=== PATIENT | male | born 1945 | race Caucasian/White ===

== ENCOUNTER 2017-10-04 18:50 | Inpatient (IN) | payer MEDICARE ==
[~2017-10-04] VITALS: Ht 172.7 cm; Wt 123.2 kg
[~2017-10-04 18:50] MED LIST: AMIT25TA PO; ASPI325T17 PO; CARV12.52 PO; CITA20TA5 PO; ENOX40SY4 SQ; FLUO20CA8 PO; GABA300C10 PO; LEVO25TA4 PO; MELO15TA24 PO; OMEP-110 PO; OXYC-302 PO; PANT40TA5 PO; SIMV40TA3 PO; TRAZ50TA18 PO; [UNRECOGNIZED DRUG - REMARK]
[2017-10-04 19:47] LABS: TROPONIN I 0.685 ng/mL (0.000-0.045)
[2017-10-04] MEDS ORDERED: hydrALAzine 20 MG/ML, 1ML IVPush PRN (21:00)
[2017-10-04] MEDS ORDERED: NITROGLYCERIN 0.4 MG BOTTLE (25 TABS) SL PRN (21:00)
[2017-10-04] MEDS ORDERED: BISACODYL 10 MG SUPP PR PRN (21:00)
[2017-10-04] MEDS ORDERED: morphine SULFATE 10 MG/ML, 1ML IVPush PRN (21:00)
[2017-10-04] MEDS ORDERED: ACETAMINOPHEN 325 MG TABLET PO PRN (21:00)
[2017-10-04] MEDS ORDERED: ONDANSETRON 2MG/ML, 2ML IVPush PRN (21:00)
[2017-10-04] MEDS ORDERED: POLYETHYLENE GLYCOL 17 GM PACKET PO PRN (21:00)
[2017-10-04] MEDS ORDERED: SODIUM CHLORIDE FLUSH 10ML SYR IVF PRN (21:00)
[2017-10-04 21:13] LABS: FREE T4 (FREE THYROXINE) 0.62 ng/dL (0.76-1.46); THYROID STIMULATING HORMONE 26.4 mIU/L (0.358-3.740)
[2017-10-04 22:08] VITALS: BP 179/91
[2017-10-04 22:09] VITALS: BP 160/76
[2017-10-04] MEDS: TICAGRELOR 90 MG TABLET PO SCH (22:58)
[2017-10-04] MEDS: HEPARIN 5,000 UNITS/ML, 1ML SQ SCH (22:58)
[2017-10-04] MEDS: SIMVASTATIN 40 MG TABLET PO SCH (22:58)
[2017-10-04] MEDS: TRAZODONE 50MG TABLET PO SCH (22:58)
[2017-10-04] MEDS: SODIUM CHLORIDE FLUSH 10ML SYR IVF SCH (23:01)
[2017-10-05] VITALS: BP 128/68
[2017-10-05 01:26] LABS: BASOPHILS # (AUTO) 0.04 x10^3/uL (0-0.1); BASOPHILS % (AUTO) 1 % (0-1); EOSINOPHILS % (AUTO) 7 % (1-7); LYMPHOCYTES # (AUTO) 1.55 x10^3/uL (1-3.4); LYMPHOCYTES % (AUTO) 34 % (22-44); MD NO; MEAN CORPUSCULAR HEMOGLOBIN 23.5 pg (27.5-34.5); MEAN CORPUSCULAR HGB CONC 31.5 g/dL (33.2-36.2); MEAN CORPUSCULAR VOLUME 74.6 fL (81-97); MEAN PLATELET VOLUME 9.9 fL (7.4-10.4); MONOCYTES # (AUTO) 0.47 x10^3/uL (0.2-0.8); MONOCYTES % (AUTO) 10 % (2-9); NEUTROPHILS # (AUTO) 2.17 x10^3/uL (1.8-6.8); NEUTROPHILS % (AUTO) 48 % (42-75); PLATELET COUNT 198 x10^3/uL (130-400); RED BLOOD COUNT 4.06 x10^6/uL (4.38-5.82); RED CELL DISTRIBUTION WIDTH 19.5 % (9.4-14.8)
[2017-10-05 01:37] LABS: ALANINE AMINOTRANSFERASE 20 U/L (12-78); ALBUMIN 3.4 g/dL (3.4-5.0); ANION GAP 7 mmol/L (5-15); CALCIUM 8.1 mg/dL (8.5-10.1); CHLORIDE 109 mmol/L (98-107); CREATININE 1.23 mg/dL (0.7-1.3)
[2017-10-05 01:39] LABS: ALKALINE PHOSPHATASE 81 U/L (45-117); BILIRUBIN,TOTAL 0.3 mg/dL (0.2-1.0); TOTAL PROTEIN 6.7 g/dL (6.4-8.2)
[2017-10-05 01:42] LABS: TROPONIN I 0.658 ng/mL (0.000-0.045)
[2017-10-05 03:39] VITALS: BP 136/76
[2017-10-05] MEDS: HEPARIN 5,000 UNITS/ML, 1ML SQ SCH ×3 (07:00→22:51)
[2017-10-05 07:46] LABS: TROPONIN I 0.557 ng/mL (0.000-0.045)
[2017-10-05 08:08] VITALS: BP 145/82
[2017-10-05] MEDS: GABAPENTIN 300 MG CAPSULE PO SCH (08:49)
[2017-10-05] MEDS: OMEPRAZOLE 20 MG CAPSULE.DR PO SCH (08:49)
[2017-10-05] MEDS: AMITRIPTYLINE 25 MG TABLET PO SCH (08:49)
[2017-10-05] MEDS: CITALOPRAM 20 MG TABLET PO SCH (08:49)
[2017-10-05] MEDS: LEVOTHYROXINE 25 MCG TABLET PO SCH (08:49)
[2017-10-05] MEDS: FLUOXETINE HCL 20 MG CAPSULE PO SCH (08:49)
[2017-10-05] MEDS: CARVEDILOL 12.5 MG TABLET PO SCH (08:49)
[2017-10-05] MEDS: TICAGRELOR 90 MG TABLET PO SCH (08:49)
[2017-10-05] MEDS: SODIUM CHLORIDE FLUSH 10ML SYR IVF SCH ×2 (08:50→21:29)
[2017-10-05] MEDS: SENNA/DOCUSATE TABLET PO SCH (08:50)
[2017-10-05] MEDS: CLOPIDOGREL 75 MG TABLET PO SCH (15:19)
[2017-10-05 15:53] VITALS: BP 131/66
[2017-10-05] MEDS ORDERED: ASPI-621 PO (18:17)
[2017-10-05] MEDS: ASPIRIN 81 MG TABLET EC PO SCH (18:30)
[2017-10-05 19:01] VITALS: BP 146/74
[2017-10-05] MEDS: SIMVASTATIN 40 MG TABLET PO SCH (21:28)
[2017-10-05] MEDS: TRAZODONE 50MG TABLET PO SCH (21:29)
[2017-10-05] MEDS ORDERED: ROPINIROLE 0.25MG TABLET PO PRN (23:30)
[2017-10-06 01:52] VITALS: BP 151/69
[2017-10-06] MEDS: ASPIRIN 81 MG TABLET EC PO SCH (06:28)
[2017-10-06 07:39] VITALS: BP 147/79
[2017-10-06] MEDS: CARVEDILOL 12.5 MG TABLET PO SCH (08:54)
[2017-10-06] MEDS: FLUOXETINE HCL 20 MG CAPSULE PO SCH (08:54)
[2017-10-06] MEDS: CLOPIDOGREL 75 MG TABLET PO SCH (08:54)
[2017-10-06] MEDS: AMITRIPTYLINE 25 MG TABLET PO SCH (08:54)
[2017-10-06] MEDS: GABAPENTIN 300 MG CAPSULE PO SCH (08:54)
[2017-10-06] MEDS: LEVOTHYROXINE 25 MCG TABLET PO SCH (08:55)
[2017-10-06] MEDS: SODIUM CHLORIDE FLUSH 10ML SYR IVF SCH (08:55)
[2017-10-06] MEDS: OMEPRAZOLE 20 MG CAPSULE.DR PO SCH (08:55)
[2017-10-06] MEDS: CITALOPRAM 20 MG TABLET PO SCH (08:55)
[2017-10-06] MEDS: SENNA/DOCUSATE TABLET PO SCH (08:55)
[2017-10-06] MEDS: HEPARIN 5,000 UNITS/ML, 1ML SQ SCH (08:55)
[2017-10-06] MEDS ORDERED: LOSARTAN 25MG TABLET PO SCH (09:00)
[2017-10-06] MEDS ORDERED: LOSARTAN 25MG TABLET ONE (09:02)
[2017-10-06 09:37] LABS: TROPONIN I 0.309 ng/mL (0.000-0.045)
[2017-10-06] MEDS ORDERED: NITR0.4T SL (11:01)
[2017-10-06] MEDS ORDERED: LEVO50TA PO (11:01)
[2017-10-06] MEDS ORDERED: CLOP75TA PO (11:01)
[2017-10-06] MEDS ORDERED: LOSA25TA2 PO (11:14)
== END 2017-10-06 12:10 | disposition home or self-care (01) | DRG 204 ==
LOC: ED 20:53 → EDIP 21:29 → 5SO 21:55 → DCLOUNGE 10-06 11:59
PROVIDERS: ADMIT Internal Medicine; ATTEND Internal Medicine
DX: R06.00 Dyspnea, unspecified (principal); E66.01 Morbid (severe) obesity due to excess calories; T45.525A Adverse effect of antithrombotic drugs, initial encounter; E03.9 Hypothyroidism, unspecified; E78.5 Hyperlipidemia, unspecified; F32.9 Major depressive disorder, single episode, unspecified; K21.9 Gastro-esophageal reflux disease without esophagitis; I25.10 Atherosclerotic heart disease of native coronary artery without angina pectoris; E66.9 Obesity, unspecified; Z96.642 Presence of left artificial hip joint; I10 Essential (primary) hypertension; Z95.1 Presence of aortocoronary bypass graft; Z95.5 Presence of coronary angioplasty implant and graft; Z82.49 Family history of ischemic heart disease and other diseases of the circulatory system; Z79.899 Other long term (current) drug therapy; Z79.82 Long term (current) use of aspirin; R06.02 Shortness of breath
CPT/HCPCS: 36415; 71045; 78582; 80053; 84439; 84443; 84484; 85025; 93005; 99285; J1644; A9540; A9558; C9898